=== PATIENT | female | born 1960 | race Caucasian/White ===

== ENCOUNTER 2017-03-21 07:59 | Day surgery (SDC) | payer OTHER ==
[2017-03-21 10:45] VITALS: O2SAT 100
[2017-03-21] MEDS ORDERED: Propofol 10 mg/ml Inj (20 ML) ONE (12:35)
[2017-03-21] MEDS ORDERED: Lactated Ringer's 1,000 ML IV ONE (12:40)
--- NOTE | 2017-03-21 12:40 | CP.SDSHP ---
Same Day Surgery H & P - History Proposed Procedure: COLONSCOPY Pre-Op Diagnosis: SEE NOTES - Previous Medical/Surgical History Cardiac: Hypertension Neuro: Backaches Misc: Other Pain: 4.Moderate Pain - Allergies Allergies: Allergies misoprostol Adverse Reaction (Verified 03/21/17 10:49) RASH - Physical Exam General Appearance: N Vital Signs: Vital Signs 03/21/17 10:15 Temperature 98.2 F Pulse Rate 56 L Respiratory 19 Rate Blood Pressure 102/47 L O2 Sat by Pulse 100 Oximetry Mental Status: Alert & Oriented x3 Neuro: WNL Heart: Other Lungs: WNL GI: WNL - {Optional Preform as Required} Breast: WNL Abdomen: Other Rectal: Other Integument: WNL : WNL Ortho: Other ENT: WNL - Impression Pt. Evaluated Today:Candidate for Anesthesia & Procedure: Yes - Date & Time Time: 12:40 Short Stay Discharge - Short Stay Discharge Admitting Diagnosis/Reason for Visit: RECTAL BLEEDING Disposition: HOME/ ROUTINE Referrals: FAMILY PROVIDER,NO [Primary Care Provider] -
[2017-03-21] MEDS ORDERED: Belladonna-Phenobarbital PO ONE (13:15)
[2017-03-21 13:54] VITALS: TEMP 97.2
[2017-03-21 13:57] VITALS: RESP 12
[2017-03-21 13:59] VITALS: BP 107/47; PULSE 51
== END 2017-03-21 14:15 | disposition home or self-care (01) ==
LOC: C.ENDO 07:59
PROVIDERS: ATTEND Specialist
DX: K58.9 Irritable bowel syndrome, unspecified (principal); K62.5 Hemorrhage of anus and rectum; K64.8 Other hemorrhoids; K64.4 Residual hemorrhoidal skin tags
CPT/HCPCS: 45380; 88305; J2704; J7120